=== PATIENT | female | born 1950 | race Caucasian/White ===

== ENCOUNTER 2019-06-18 07:33 | Inpatient (IN) ==
--- NOTE | 2019-06-03 07:46 | History & Physical Report ---
Date of Service June 03, 2019 date of surgery: 06-18-19 Assessment & Plan (1) Arthritis of right knee: Risks and benefits of procedure discussed in detail today, patient would like to proceed with a Right total knee replacement at [facility] as scheduled. will obtain medical clearance prior to surgery as well as obtain PATs at [facility]. Will place on ASA 81mg po bid x 1 month post op, f/u 2 weeks post op for routine post-operative care and x-ray, sooner if having any problems. will make arrangements for HHPT at the time of discharge. At this point in time, has failed conservative measures and would like to proceed with surgical intervention. History of Present Illness Chief Complaint: Right knee pain Primary Care Provider: Nadira Rubio DO Yanni is a 68 year old female who complains of Right knee pain, presents for pre-op evaluation prior to a right total knee replacement by dr Otoole at [facility]. she complains of pain, crepitus, decreased range of motion, instability and stiffness in the right knee. she states that the symptoms have been chronic and non-traumatic and that the symptoms occur constantly with intermittent worsening. Currently the patient states that the symptoms are moderate-severe. The pain is described as aching, sharp and throbbing. The symptoms occur continuously. The symptoms are aggravated by ascending stairs, daily activities, first steps while awake walking. Prior NSAIDs include Mobic, Aleve and IBU. she has been treated with multiple previous Visco injections in the past without much relief. she had previous right knee scope in 2008. Allergies Allergy/AdvReac Type Severity Reaction Status Date / Time No Known Drug Allergies Allergy Unknown Verified 05/27/19 13:18 Home Medications Home Medications Medication Instructions Recorded Confirmed Type aripiprazole [Abilify] 5 mg PO QDL 05/27/19 05/27/19 History cholecalciferol (vitamin D3) 5,000 unit PO Q OTHER DAY 05/27/19 05/27/19 History [Vitamin D3] conjugated estrogens [Premarin] 0.625 mg PO QDL 05/27/19 05/27/19 History desvenlafaxine succinate [Pristiq] 100 mg PO QDL 05/27/19 05/27/19 History guanfacine [Intuniv ER] 1 mg PO QPM 05/27/19 05/27/19 History levothyroxine [Synthroid] 150 mcg PO QAM 05/27/19 05/27/19 History multivitamin 1 tab PO QDL 05/27/19 05/27/19 History nortriptyline 25 mg PO HS 05/27/19 05/27/19 History pramipexole 0.125 mg PO TID PRN 05/27/19 05/27/19 History Past Med/Surg History Medical History ADHD Anxiety Anxiety Depression Hx of hepatitis C Hypothyroidism Osteoarthritis Tardive dyskinesia AFFECTS TONGUE Traumatic brain injury D/T FALL 2012; RESIDUAL WITH CONCENTRATION AND MEMORY. ALSO HAS TROUBLE FINDING WORDS. DIFFICULTY WOTH ANDIE MOTOR SKILLS. STATES DOESN' KNOW WHEN TO LET GO OF THINGS Surgical History History of section History of hysterectomy Hx of bilateral cataract extraction Hx of bilateral oophorectomy Hx of section X2 Hx of colonoscopy Hx of hysterectomy Hx of plastic surgery REMOVAL EXCESSIVE STOMACH TISSUE Status post panniculectomy Family History Mother Leukemia Social History Preferred Language: [place] Leonean Communication Ability: Effective Beliefs That Will Affect Care: None Current Living Situation: Spouse Feels Safe at Home: Yes Smoking Status: Never smoker Hx Alcohol Use: Yes Alcohol type: beer Hx Substance Use: No Sunscreen Use: Yes Review of Systems Review of Systems: All systems reviewed & are unremarkable except as noted in HPI & below Constitutional: no fever, no chills and no sweats Respiratory: no cough and no dyspnea Cardiovascular: no chest pain, no dyspnea and no orthopnea Gastrointestinal: no abdominal pain, no nausea and no vomiting Musculoskeletal: as per Subjective / HPI Physical Exam 2 Physical Exam: Ht: 5ft 3in Wt: 99.8kg BP: 120/86 Pulse: 76 Constitutional: WD/WN, vitals as above no acute distress Respiratory: normal respiratory effort, lungs clear to auscultation no respiratory distress, no labored breathing and does not use accessory muscles Cardiovascular: RRR, no murmur, no edema Gastrointestinal (Abdomen): normal bowel sounds, soft, nontender, no hepatosplenomegaly Musculoskeletal: Knee: + knee abnormal to inspection (right knee), + effusion (+1 effusion), + surgical incision (well healed portals), + limited ROM of knee (ROM 0/3/110), + knee ROM with crepitation, + joint line tenderness (medial joint line) and + Nuno's sign positive; no deformity, no skin erythema, no ecchymosis, no valgus laxity, no varus laxity, anterior drawer test negative, Alba's sign negative and pivot shift test negative Results & Data Diagnostic Findings right knee x-ray from July 2018 showing complete loss joint space medial compartment with overall varus alignment, there is also narrowing of the lateral compartment and patellofemoral joint. there is osteophyte formation, subchondral sclerosis noted, no loose bodies, no acute bony pathology. overall impression tricompartmental degenerative changes to the right knee.
--- NOTE | 2019-06-03 12:18 | PAT Medication Instructions ---
Medication Instructions Date of Service June 03, 2019 Home Medications aripiprazole [Abilify] 5 mg PO QDL cholecalciferol (vitamin D3) [Vitamin D3] 5,000 unit PO Q OTHER DAY conjugated estrogens [Premarin] 0.625 mg PO QDL desvenlafaxine succinate [Pristiq] 100 mg PO QDL guanfacine [Intuniv ER] 1 mg PO QPM levothyroxine [Synthroid] 150 mcg PO QAM multivitamin 1 tab PO QDL nortriptyline 25 mg PO HS pramipexole 0.125 mg PO TID PRN STOP taking 24 hours before surgery pramipexole 0.125 mg PO TID PRN DO NOT take the morning of surgery cholecalciferol (vitamin D3) [Vitamin D3] 5,000 unit PO Q OTHER DAY Take morning of surgery With a small sip of water, OTHERWISE NOTHING TO EAT OR DRINK AFTER MIDNIGHT: levothyroxine [Synthroid] 150 mcg PO QAM Take evening before surgery (and lunchtime day before surgery) aripiprazole [Abilify] 5 mg PO QDL conjugated estrogens [Premarin] 0.625 mg PO QDL desvenlafaxine succinate [Pristiq] 100 mg PO QDL guanfacine [Intuniv ER] 1 mg PO QPM multivitamin 1 tab PO QDL nortriptyline 25 mg PO HS Other Notes If you have any questions please call us at [phone] or [phone] or [phone] or [phone]
--- NOTE | 2019-06-03 12:33 | Anesthesiology Consultation ---
Date of Service June 03, 2019 Assessment & Plan (1) Encounter for pre-operative examination: Chart Review Chart Review: Acceptable Risk for Surgery (pending surgeon ordered PCP clearance) and Patient seen in Pre Admission Testing Teaching & Discussion Instructed NPO after midnight before surgery, except medications with 15 cc of water. Medication instructions provided according to the PAT guidelines. History Surgery Operation Date: 06/18/19 09:55 Proposed Procedures p Right Total Knee Arthroplasty - Tone Otoole DO Height/Weight Height: 5 ft 3 in Weight: 104 kg Allergies Allergy/AdvReac Type Severity Reaction Status Date / Time No Known Drug Allergies Allergy Unknown Verified 05/27/19 13:18 Medications Home Medications Medication Instructions Recorded Confirmed Last Taken aripiprazole [Abilify] 5 mg PO QDL 05/27/19 05/27/19 Unknown cholecalciferol (vitamin D3) 5,000 unit PO Q OTHER DAY 05/27/19 05/27/19 Unknown [Vitamin D3] conjugated estrogens [Premarin] 0.625 mg PO QDL 05/27/19 05/27/19 Unknown desvenlafaxine succinate [Pristiq] 100 mg PO QDL 05/27/19 05/27/19 Unknown guanfacine [Intuniv ER] 1 mg PO QPM 05/27/19 05/27/19 Unknown levothyroxine [Synthroid] 150 mcg PO QAM 05/27/19 05/27/19 Unknown multivitamin 1 tab PO QDL 05/27/19 05/27/19 Unknown nortriptyline 25 mg PO HS 05/27/19 05/27/19 Unknown pramipexole 0.125 mg PO TID PRN 05/27/19 05/27/19 Unknown Past Medical History Medical History ADHD Anxiety Depression Hx of hepatitis C Hypothyroidism Osteoarthritis Tardive dyskinesia AFFECTS TONGUE Traumatic brain injury D/T FALL 2012; RESIDUAL WITH CONCENTRATION AND MEMORY. ALSO HAS TROUBLE FINDING WORDS. DIFFICULTY WITH SOME MOTOR SKILLS. Exercise / Class Metabolic Activity III < 4 Walking/Shop/Light housework (Has 8 stairs at home that she does daily without CP or SOB, feels would get SOB with longer flight of stairs) Past Family History Family History Mother Leukemia Past Surgical History Surgical History Hx of bilateral cataract extraction Hx of bilateral oophorectomy Hx of section X2 Hx of colonoscopy Hx of hysterectomy Status post panniculectomy Past Anesthesia History No Hx of Anesthesia Complications Mother may have had an issue with Versed or fentanyl overdosing during anesthesia. Unsure of details. History of PONV No Hx of PONV and Hx of Motion Sickness Social History Smoking Status: Never smoker Do You Dip or Chew Tobacco: No Hx Alcohol Use: Yes Alcohol type: beer alcohol intake frequency: a few times a week Hx Substance Use: No Review of Systems Pt denies any recent chest pain, shortness of breath, palpitations, cough, fever or URI. Physical Exam Vital Signs BP: 122/82 P: 70bpm SPO2: 97% RA T: 98.1 F R: 16 Constitutional + obese ENMT Mouth: + dental restorations (few crowns, one implant) and + loose teeth (see diagram); no chipped teeth Mallampati Class: III Mouth / Teeth: 1. VERY loose tooth Neck + short neck; neck extension not limited Respiratory normal respiratory effort Auscultation: lungs clear to auscultation bilaterally Cardiovascular Rate/Rhythm: regular rate and regular rhythm Heart Sounds: no murmur Extremities: no edema Testing Laboratory Results 06/03/19 12:42 06/03/19 12:42 PT 10.1 Seconds (9.0-12.0) 06/03/19 12:42 INR 1.0 (0.9-1.1) 06/03/19 12:42 APTT 25.3 Seconds (21.0-31.0) 06/03/19 12:42 Hemoglobin A1c 5.7 % (4.5-5.6) H 06/03/19 12:42 Urine Color Yellow 06/03/19 Unknown Urine Appearance Clear (Clear) 06/03/19 Unknown Urine pH 5.5 (4.5-7.5) 06/03/19 Unknown Ur Specific [place] 1.019 (1.000-1.030) 06/03/19 Unknown Urine Protein Negative (Negative) 06/03/19 Unknown Urine Glucose (UA) Negative (Negative) 06/03/19 Unknown Urine Ketones Negative (Negative) 06/03/19 Unknown Urine Nitrite Negative (Negative) 06/03/19 Unknown Ur Leukocyte Esterase Negative (Negative) 06/03/19 Unknown Blood Type A Positive 06/03/19 12:42 Antibody Screen NEGATIVE 06/03/19 12:42 Electrocardiogram Date: 06/03/19 Findings: + NSR @ (61) Left axis deviation. Low voltage QRS. Compared with EKG of 06/07/2012, no significant change found. Chest X-Ray Date: 06/03/19 IMPRESSION: Suspected minimal right middle lobe atelectasis. Otherwise unremarkable chest.
--- NOTE | 2019-06-03 13:10 | XRay Report ---
XR chest Pre-admission PA/Lat CLINICAL HISTORY: Preoperative chest COMPARISON STUDY: No previous studies for comparison. FINDINGS: The heart is normal in size. There is no failure. There is no lobar consolidation. Slightly prominent right middle lobe markings are likely atelectatic. There are no significant pleural effusi ons.[ IMPRESSION: Suspected minimal right middle lobe atelectasis. Otherwise unremarkable chest. ACT 112: Negative or not required by law. Electronically signed by: Raleigh De León M.D. 06/03/2019 1:08 PM
[2019-06-03 14:01] LABS: Basophils # (auto) 0.02 K/uL (0-0.2); Basophils % (auto) 0.3 %; Eosinophils # (auto) 0.14 K/uL (0-0.5); Eosinophils % (auto) 2.1 %; Hematocrit (blood only) 40.9 % (37-47); Hemoglobin 13.4 g/dL (12.0-16.0); Immature Granulocytes # (auto) 0.01 K/uL (0.00-0.02); Immature Granulocytes % (auto) 0.1 %; Lymphocytes # (auto) 2.24 K/uL (1.2-3.4); Lymphocytes % (auto) 33.6 %; Mean Corpuscular Hgb Conc 32.8 g/dL (32-36); Mean Corpuscular Volume 94.7 fL (80-100); Mean Platelet Volume 10.1 fL (7.4-10.4); Monocytes # (auto) 0.42 K/uL (0.11-0.59); Monocytes % (auto) 6.3 %; Neutrophils # (auto) 3.84 K/uL (1.4-6.5); Neutrophils % (auto) 57.6 %; Platelet Count 211 K/uL (130-400); RDW Coefficient of Variation 13.7 % (11.5-14.5); RDW Standard Deviation 47.4 fL (36.4-46.3); Red Blood Count 4.32 M/uL (4.2-5.4); White Blood Count 6.67 K/uL (4.8-10.8)
[2019-06-03 14:02] LABS: Appearance Urine Clear (Clear); Bilirubin Urine Negative (Negative); Blood Urine Negative (Negative); Color Urine Yellow; Glucose Urine UA Negative (Negative); Ketones Urine Negative (Negative); Leukocyte Esterase Urine Negative (Negative); Nitrite Urine Negative (Negative); Protein Urine Negative (Negative); Specific Gravity Urine 1.019 (1.000-1.030); Urobilinogen Urine Negative (Negative); pH Urine 5.5 (4.5-7.5)
[2019-06-03 14:18] LABS: Partial Thromboplastin Ratio 0.9; Partial Thromboplastin Time 25.3 Seconds (21.0-31.0); Prothrombin Time 10.1 Seconds (9.0-12.0)
[2019-06-03 14:23] LABS: Albumin Level 3.4 gm/dl (3.4-5.0); BUN Creatinine Ratio 19.6 (10-20); Calcium 9.4 mg/dl (8.5-10.1); Creatinine Clr Calc Pharmacy 93.8 ml/min; Est GFR (African American) 105.6; Est GFR (Non-African American) 91.2; Potassium 4.3 mmol/L (3.5-5.1)
--- NOTE | 2019-06-03 15:40 | Electrocardiogram Report ---
Test Reason : Blood Pressure : / mmHG Vent. Rate : 061 BPM Atrial Rate : 061 BPM P-R Int : 156 ms QRS Dur : 084 ms QT Int : 406 ms P-R-T Axes : 063 -34 050 degrees QTc Int : 408 ms Normal sinus rhythm Left axis deviation Low voltage QRS Abnormal ECG When compared with ECG of 07-JUN-2012 09:18, No significant change was found Confirmed by German Mcarthur ([id number]) on 06/03/2019 3:39:54 PM Referred By: Tone Otoole Confirmed By:German Mcarthur
[2019-06-04 05:48] LABS: Estimated Average Glucose 117 mg/dl; Hemoglobin A1C 5.7 % (4.5-5.6)
[~2019-06-18 07:33] MED LIST: ACETAMINOPHEN 500 MG TAB PO SCH; BUPIVACAINE 0.5 % 5 MG/1 ML PF 10ML VIAL ONE; BUPIVACAINE/EPINEPHRINE 0.25% 1:200,000 30 ML VIAL ONE; CEFAZOLIN 2000MG 2,000 MG/15 ML SYR IV SCH; CeleBREX 200 MG CAP PO SCH; FAMOTIDINE 20 MG TAB PO SCH; GABAPENTIN 300 MG CAP PO SCH; LR 500ML BOLUS, THEN 15ML/HR IV SCH; METOCLOPRAMIDE HCL 10 MG TABLET PO SCH; ROPIVACAINE 0.5% HCL/PF 150 MG, BUPIVACAINE 0.5% MPF 30 ML, EPINEPHrine 30MG/30ML (OR U... INSTIL SCH; TRANEXAMIC ACID 1,000 MG **IV Intra-op IV SCH; TRANEXAMIC ACID 1,000 MG **IV Pre-op IV SCH; dexAMETHasone 4 MG TAB PO SCH
--- NOTE | 2019-06-18 08:41 | History & Physical Bridge Note ---
Date of Service June 18, 2019 History & Physical Bridge Note I have examined the patient, reviewed the History & Physical and in the interval since the performance of the History & Physical I have noted the following changes of clinical significance: no changes noted
[2019-06-18] MEDS ORDERED: fentaNYL citrate 100 MCG/2 ML VIAL ONE (08:44)
[2019-06-18] MEDS ORDERED: MIDAZOLAM HCL 1 MG/ML 2ML VIAL ONE (08:44)
[2019-06-18] MEDS ORDERED: TRANEXAMIC ACID / 0.7% NACL 1000MG/100ML BAG IV ONE (08:46)
[2019-06-18] MEDS ORDERED: ORTHO JOINT ANESTHETIC ONE (09:14)
[2019-06-18] MEDS ORDERED: BACITRACIN INJ 50,000 UNIT VIAL ONE (09:15)
[2019-06-18] MEDS ORDERED: ATROPINE SULFATE 0.1 MG/ML 10ML SYR IV PRN (09:22)
[2019-06-18] MEDS ORDERED: ePHEDrine sulfate 50 MG/ML AMP IV PRN (09:22)
[2019-06-18] MEDS ORDERED: ONDANSETRON INJ 2 MG/ML 2 ML VIAL IV PRN ×2 (09:22→13:02)
[2019-06-18] MEDS ORDERED: HYDROmorphone INJ 2 MG/ML SYR/VIAL IV PRN (09:22)
[2019-06-18] MEDS ORDERED: fentaNYL citrate 100 MCG/2 ML VIAL IV PRN (09:22)
[2019-06-18] MEDS ORDERED: LIDOCAINE HCL 2% 2 ML VIAL/AMP(20MG/ML) INFIL ONE (09:57)
[2019-06-18] MEDS ORDERED: PROPOFOL IV EMULSION 10 MG/ML 20 ML VIAL IV ONE ×3 (09:57→10:36)
[2019-06-18] MEDS ORDERED: ONDANSETRON INJ 2 MG/ML 2 ML VIAL ONE (09:58)
[2019-06-18] MEDS ORDERED: PHENYLEPHRINE 100MCG/ML 5ML SYR ONE (10:00)
[2019-06-18] MEDS ORDERED: ePHEDrine sulfate 50 MG/ML SYR ONE (10:18)
--- NOTE | 2019-06-18 10:48 | Operative Report ---
Post Operative Report Pre & Post Diagnosis Operation Date: 06/18/19 09:55 Pre-Op Diagnosis: Right knee osteoarthritis Post-Op Diagnosis: Right knee osteoarthritis I identified the patient and participated in the time-out.: Yes Procedure Operation Date: 06/18/19 09:55 Actual Procedures p Right Total Knee Arthroplasty(Right) utilizing [employer] journey 2 patient matched total knee arthroplasty size 3 femur size 2 tibia size 13 polyethylene size 29 oval patella- Tone Otoole DO Surgeon Tone Otoole DO Machine Operator Hop Worker RADAMES Post Estimated Blood Loss 5 Findings Consistent with Post-Op Diagnosis Patient presents with severe end-stage tricompartmental degenerative joint disease [id number] marginal osteophyte subchondral cystic changes eburnated bone with marginal with a moderate to large effusion no response to conservative management Specimens Bone cartilage Drains Medium bore Hemovac Complications none Disposition Accompanied Patient To Recovery: No Disposition: Recovery Room Indications Patient presents being seen evaluated with complaints of ongoing pain attributable to her knee she been no response to conservative management inclu ding physical therapy anti-inflammatories relative rest activity modification corticosteroid injections Visco supplementation she presents for right total knee arthroplasty Description of Procedure After proper prepping and draping of the Right lower extremity anterior midline incision was made over the region of the extensor extensor mechanism after meticulous hemostasis was obtained and maintained in subcutaneous tissues a medial parapatellar incision was made The patella was subluxed lateralward the medial lateral gutter were cleaned from any hypertrophic synovitis and scar tissue of the distal femoral block was placed and the distal femoral osteotomy cut was made subsequently the chamfers anterior and posterior osteotomy cuts were made utilizing the 4-in-1 block the tibia was subsequently subluxed anteriorward medial and ateral meniscal remnants were excised in their entirety remnants of the anterior and posterior cruciate ligaments were excised in their entirety excellent exposure of the proximal tibia was obtained the tibial osteotomy guide was placed on the proximal tibial osteotomy cut was made once again the knee was irrigated with copious amounts of sterile saline solution the patella was subsequently everted lateralward thickened scar tissue around the patella was removed the patella was subsequently cut utilizing a freehand technique and was drilled prepared for final preparation and placement of patella socially flexion-extension gaps were checked and the equal and symmetric trials were placed to the appropriate femoral and tibial trials with poly-spacer being placed for equal flexion and extension gaps and full range of motion including extension to 0 and flexion to 140 the trial components after having been taken to recovery range of motion was subsequently removed meticulous hemostasis was obtained and maintained subsequently a knee block injection of joint cocktail including ropivacaine 0.5% 150 mg. Bupivacaine 0.5% epinephrine 1-200,030 mL's toradol 30 mg dexamethasone 4 mg ketamine 10 mg clonidine 100 micrograms normal saline solution 30 mg was infiltrated into the soft tissues of the posterior knee medial lateral gutters and periosteal synovium special attention was paid to protect neurovascular structures at all times subsequently trial components having been removed the knee was irrigated with sterile saline solution. debris was removed the proximal tibia was subsequently prepared and was made ready for the placement of the tibial component tibial component was also cemented and tamped into position the femoral component was subsequently placed and cemented in the position the patellar component was subsequently cemented in position because hemostasis once again obtained and maintained wound having been thoroughly irrigated with debridement and debridement lavage was performed as well as a medial parapatellar incision closed with #1 Vicryl in interrupted fashion subcutaneous was closed with #2 Vicryl skin was closed with skin clips. PA-C was necessary for prepping and drapping as well as wound closure of deep fascia Sub cutaneous tissue and skin and was necessary for the case. A sterile compressive dressing was placed patient was taken to recovery in stable condition of report dictated by Xiang I attest to the content of the Intraoperative Record and any orders documented therein. Any exceptions are noted below. I attest to the content of the Intraoperative Record and any orders documented therein. Any exceptions are noted below.
--- NOTE | 2019-06-18 12:11 | XRay Report ---
RIGHT KNEE 2 VIEWS History: Right total knee arthroplasty. Degenerative arthritis. Postop. FINDINGS: The patient is status post a right total knee arthroplasty. The hardware is intact. No frac ture or dislocation. Surgical drains are in place. IMPRESSION: Right total knee arthroplasty. No evidence for hardware complication. ACT 112: Negative or not required by law. Electronically signed by: Juventino Russell M.D. 06/18/2019 12:10 PM
--- NOTE | 2019-06-18 12:38 | Anesthesiology Progress Note ---
Date of Service June 18, 2019 Anesthesia Post Procedure Vital Signs Vital Signs: Temp Pulse Pulse Resp BP Pulse Ox 06/18/19 12:15 36.8 C 74 16 117/65 96 06/18/19 12:05 36.8 C 75 20 108/59 L 98 06/18/19 11:55 77 14 113/75 99 06/18/19 11:45 79 16 105/61 100 06/18/19 11:35 37.2 C 84 16 98/55 L 96 06/18/19 08:20 36.7 C 71 18 138/85 95 Transfer of Care Handoff Completed per policy Notes Mental Status: alert / awake / arousable and participated in evaluation Patient Amnestic to Procedure: Yes Nausea / Vomiting: adequately controlled Pain: adequately controlled Airway Patency, RR, SpO2: stable & adequate BP & HR: stable & adequate Hydration State: stable & adequate Anesthetic Complications: no major complications apparent and Pt Satisfied with anesthetic care
[2019-06-18] MEDS ORDERED: NALOXONE HCL 0.4 MG/1 ML VIAL/CARP IV PRN (13:02)
[2019-06-18] MEDS ORDERED: METOCLOPRAMIDE HCL INJ 5 MG/ML 2 ML VIAL IV PRN (13:02)
[2019-06-18] MEDS ORDERED: MAGNESIUM HYDROXIDE SUSP 30 ML UDC PO PRN (13:02)
[2019-06-18] MEDS ORDERED: HYDROmorphone INJ 1 MG/ML SYRINGE IV PRN (13:02)
[2019-06-18] MEDS ORDERED: bisacodyL 10 MG SUPP PR PRN (13:02)
[2019-06-18] MEDS: SODIUM CHLORIDE 0.9% 1000ML 1,000 ML IV SCH (15:08)
[2019-06-18] MEDS: KETOROLAC TROMETHAMINE 15 MG/ML VIAL IV SCH ×2 (15:09→20:39)
[2019-06-18] MEDS: ACETAMINOPHEN 500 MG TAB PO SCH ×2 (15:10→22:41)
[2019-06-18] MEDS: CEFAZOLIN 2000MG 2,000 MG/15 ML SYR IV SCH (18:58)
[2019-06-18] MEDS: OXYCODONE HCL IR 5 MG TAB (IMMEDIATE RELEASE) PO PRN (20:38)
[2019-06-18] MEDS: NORTRIPTYLINE HCL 25 MG CAP PO SCH (20:40)
[2019-06-18] MEDS: DOCUSATE SODIUM 100 MG CAP PO SCH (20:40)
[2019-06-18] MEDS: ASPIRIN 81 MG ECTAB PO SCH (20:40)
[2019-06-18] MEDS: SENNA 8.6 MG TAB PO SCH (20:41)
[2019-06-18] MEDS: PRAMIPEXOLE DIHYDROCHLO 0.25 MG TAB PO PRN (21:07)
[2019-06-18] MEDS: GUANFACINE HCL 1 MG ERTAB PO SCH (21:07)
[2019-06-19] MEDS: SODIUM CHLORIDE 0.9% 1000ML 1,000 ML IV SCH (00:45)
[2019-06-19] MEDS: CEFAZOLIN 2000MG 2,000 MG/15 ML SYR IV SCH (02:14)
[2019-06-19] MEDS: KETOROLAC TROMETHAMINE 15 MG/ML VIAL IV SCH ×2 (02:14→08:52)
[2019-06-19] MEDS: ACETAMINOPHEN 500 MG TAB PO SCH ×3 (05:40→22:46)
[2019-06-19] MEDS: LEVOTHYROXINE SODIUM 150 MCG TABLET PO SCH (05:40)
[2019-06-19 07:00] LABS: Hematocrit (blood only) 33.8 % (37-47); Hemoglobin 11.1 g/dL (12.0-16.0); Mean Corpuscular Hemoglobin 31.6 pg (25-34); Mean Corpuscular Hgb Conc 32.8 g/dL (32-36); Mean Corpuscular Volume 96.3 fL (80-100); Mean Platelet Volume 9.7 fL (7.4-10.4); Platelet Count 160 K/uL (130-400); RDW Standard Deviation 49.1 fL (36.4-46.3); Red Blood Count 3.51 M/uL (4.2-5.4); White Blood Count 14.11 K/uL (4.8-10.8)
[2019-06-19 07:30] LABS: BUN Creatinine Ratio 20.1 (10-20); Calcium 8.4 mg/dl (8.5-10.1); Creatinine Clr Calc Pharmacy 77.8 ml/min; Est GFR (African American) 86.4; Est GFR (Non-African American) 74.6; Potassium 4.8 mmol/L (3.5-5.1)
--- NOTE | 2019-06-19 08:36 | Anesthesiology Progress Note ---
Date of Service June 19, 2019 Anesthesia Post Procedure Vital Signs Vital Signs: Temp Pulse Pulse Resp BP BP Pulse Ox 06/19/19 07:00 36.8 C 71 16 97/63 L 92 06/19/19 03:28 36.5 C 63 15 95/59 L 91 06/18/19 23:06 36.8 C 76 14 98/64 L 91 06/18/19 20:06 36.8 C 85 17 109/73 93 06/18/19 15:14 84 16 101/64 94 06/18/19 13:25 36.4 C L 74 16 111/70 95 06/18/19 12:51 73 16 103/71 98 06/18/19 12:35 36.5 C 75 15 114/67 98 06/18/19 12:15 36.8 C 74 16 117/65 96 06/18/19 12:05 36.8 C 75 20 108/59 L 98 06/18/19 11:55 77 14 113/75 99 06/18/19 11:45 79 16 105/61 100 06/18/19 11:35 37.2 C 84 16 98/55 L 96 Pain Intensity Right Knee: Pain Intensity: 1 Notes Mental Status: alert / awake / arousable and participated in evaluation Patient Amnestic to Procedure: Yes Nausea / Vomiting: adequately controlled Pain: adequately controlled Airway Patency, RR, SpO2: stable & adequate BP & HR: stable & adequate Hydration State: stable & adequate Neuraxial Anesthesia: was administered and sensory block resolved Anesthetic Complications: no major complications apparent and Pt Satisfied with anesthetic care Notes: Talked with patient, at length, about the loss of her left front tooth. Pt recalls verbalizing to Dr Bhatia that it was extremely loose and that there was a very good possibilty of the tooth falling out. I explained to the patient that she was obstructing from the sedation and that we opened her airway with an oral airway. It was when the airway was removed that her tongue was pushing against her tooth and it was noticed that the toothwas already out. The patient reverbalized this morning that she is fine with loosing the tooth and that she had been trying to get it out and loosening it herself. I told her that if she had any more questions to please feel free to reach out to myself or Dr Bhatia.
[2019-06-19] MEDS: DOCUSATE SODIUM 100 MG CAP PO SCH ×2 (08:48→20:18)
[2019-06-19] MEDS: ASPIRIN 81 MG ECTAB PO SCH ×2 (08:49→20:19)
[2019-06-19] MEDS: MULTIVITAMIN TAB PO SCH (08:49)
[2019-06-19] MEDS: CHOLECALCIFEROL 1,000 UNITS 25 MCG TAB PO SCH (08:50)
[2019-06-19] MEDS ORDERED: ZOLPIDEM TARTRATE 5 MG TAB PO PRN (09:08)
--- NOTE | 2019-06-19 09:09 | Orthopedic Progress Note ---
Date of Service June 19, 2019 Assessment & Plan (1) Osteoarthritis of right knee: Postop day 1 status post right total knee arthroplasty. PT/OT protocols. Weightbearing as tolerated. DVT prophylaxis with aspirin, SCDs, SUMAN hose. Pain management with acetaminophen ,IV hydromorphone, and p.o. oxycodone DC planning-patient is planning for home health services upon discharge. Subjective Postop day 1 Patient is currently sitting in her chair at the bedside. She has no complaints this morning. Pain is controlled. She denies any shortness of breath, chest pain, lightheadedness. Physical Exam Physical Exam: Dressings are clean, dry, and intact. Calves are soft and nontender. Neurovascular is intact. Toes are mobile. She has good dors iflexion and plantarflexion of the right foot and ankle. Hemovac drainage was 175 mL from the previous shift. Results & Data Vital Signs (Past 12 Hours) Vital Signs Temp Pulse Resp BP Pulse Ox 06/19/19 07:00 36.8 C 71 16 97/63 L 92 06/19/19 03:28 36.5 C 63 15 95/59 L 91 06/18/19 23:06 36.8 C 76 14 98/64 L 91 Laboratory Results Laboratory Results WBC 14.11 K/uL (4.8-10.8) H 06/19/19 06:34 RBC 3.51 M/uL (4.2-5.4) L 06/19/19 06:34 Hgb 11.1 g/dL (12.0-16.0) L 06/19/19 06:34 Hct 33.8 % (37-47) L 06/19/19 06:34 MCV 96.3 fL (80-100) 06/19/19 06:34 MCH 31.6 pg (25-34) 06/19/19 06:34 MCHC 32.8 g/dL (32-36) 06/19/19 06:34 RDW Std Deviation 49.1 fL (36.4-46.3) H 06/19/19 06:34 RDW Coeff of Romie 14.0 % (11.5-14.5) 06/19/19 06:34 Plt Count 160 K/uL (130-400) 06/19/19 06:34 MPV 9.7 fL (7.4-10.4) 06/19/19 06:34 Immature Gran % (Auto) 0.1 % 06/03/19 12:42 Neut % (Auto) 57.6 % 06/03/19 12:42 Lymph % (Auto) 33.6 % 06/03/19 12:42 [place] % (Auto) 6.3 % 06/03/19 12:42 Eos % (Auto) 2.1 % 06/03/19 12:42 Baso % (Auto) 0.3 % 06/03/19 12:42 Immature Gran # (Auto) 0.01 K/uL (0.00-0.02) 06/03/19 12:42 Neut # (Auto) 3.84 K/uL (1.4-6.5) 06/03/19 12:42 Lymph # (Auto) 2.24 K/uL (1.2-3.4) 06/03/19 12:42 [place] # (Auto) 0.42 K/uL (0.11-0.59) 06/03/19 12:42 Eos # (Auto) 0.14 K/uL (0-0.5) 06/03/19 12:42 Baso # (Auto) 0.02 K/uL (0-0.2) 06/03/19 12:42 PT 10.1 Seconds (9.0-12.0) 06/03/19 12:42 INR 1.0 (0.9-1.1) 06/03/19 12:42 APTT 25.3 Seconds (21.0-31.0) 06/03/19 12:42 PTT Ratio 0.9 06/03/19 12:42 Sodium 140 mmol/L (136-145) 06/19/19 06:34 Potassium 4.8 mmol/L (3.5-5.1) 06/19/19 06:34 Chloride 111 mmol/L (98-107) H 06/19/19 06:34 Carbon Dioxide 26 mmol/L (21-32) 06/19/19 06:34 Anion Gap 3.0 (3-11) 06/19/19 06:34 BUN 17 mg/dl (7-18) 06/19/19 06:34 Creatinine 0.82 mg/dl (0.6-1.2) 06/19/19 06:34 Est Cr Clr Drug Dosing 77.8 ml/min 06/19/19 06:34 Est GFR ( Amer) 86.4 06/19/19 06:34 Est GFR (Non-Af Amer) 74.6 06/19/19 06:34 BUN/Creatinine Ratio 20.1 (10-20) H 06/19/19 06:34 Glucose 132 mg/dl (70-99) H 06/19/19 06:34 Estimat Average Glucose 117 mg/dl 06/03/19 12:42 Hemoglobin A1c 5.7 % (4.5-5.6) H 06/03/19 12:42 Calcium 8.4 mg/dl (8.5-10.1) L 06/19/19 06:34 Albumin 3.4 gm/dl (3.4-5.0) 06/03/19 12:42 Specimen Hemolysis 06/19/19 06:34 Urine Color Yellow 06/03/19 Unknown Urine Appearance Clear (Clear) 06/03/19 Unknown Urine pH 5.5 (4.5-7.5) 06/03/19 Unknown Ur Specific [place] 1.019 (1.000-1.030) 06/03/19 Unknown Urine Protein Negative (Negative) 06/03/19 Unknown Urine Glucose (UA) Negative (Negative) 06/03/19 Unknown Urine Ketones Negative (Negative) 06/03/19 Unknown Urine Blood Negative (Negative) 06/03/19 Unknown Urine Nitrite Negative (Negative) 06/03/19 Unknown Urine Bilirubin Negative (Negative) 06/03/19 Unknown Urine Urobilinogen Negative (Negative) 06/03/19 Unknown Ur Leukocyte Esterase Negative (Negative) 06/03/19 Unknown Blood Type A Positive 06/03/19 12:42 Antibody Screen NEGATIVE 06/03/19 12:42
[2019-06-19] MEDS: ARIPiprazole 5 MG TAB PO SCH (11:37)
[2019-06-19] MEDS: CeleBREX 200 MG CAP PO SCH ×2 (11:38→20:19)
[2019-06-19] MEDS: ESTROGENS, CONJUGATED 0.625 MG TAB PO SCH (11:38)
[2019-06-19] MEDS: OXYCODONE HCL IR 5 MG TAB (IMMEDIATE RELEASE) PO PRN ×3 (13:26→20:17)
[2019-06-19] MEDS: NORTRIPTYLINE HCL 25 MG CAP PO SCH (20:20)
[2019-06-19] MEDS: GUANFACINE HCL 1 MG ERTAB PO SCH (20:20)
[2019-06-19] MEDS: SENNA 8.6 MG TAB PO SCH (20:20)
[2019-06-19] MEDS: PRAMIPEXOLE DIHYDROCHLO 0.25 MG TAB PO PRN (20:54)
[2019-06-20] MEDS: LEVOTHYROXINE SODIUM 150 MCG TABLET PO SCH (05:40)
[2019-06-20] MEDS: ACETAMINOPHEN 500 MG TAB PO SCH ×3 (05:41→23:21)
[2019-06-20] MEDS: OXYCODONE HCL IR 5 MG TAB (IMMEDIATE RELEASE) PO PRN ×3 (08:00→21:43)
[2019-06-20] MEDS ORDERED: KETOROLAC 30 MG/ML VIAL IV ONE (08:43)
--- NOTE | 2019-06-20 08:56 | Orthopedic Progress Note ---
Date of Service June 20, 2019 Assessment & Plan (1) Osteoarthritis of right knee: Postop day 2 status post right total knee arthroplasty. PT/OT protocols. Weightbearing as tolerated. DVT prophylaxis with aspirin, SCDs, SUMAN gomez. Pain management with acetaminophen ,IV hydromorphone, and p.o. oxycodone - Pt with pain control issues this AM. Add one time dose of Toradol. Will stop back and recheck pain control later today. DC planning-patient is planning for home health services upon discharge. Subjective POD 2 s/p Right TKA. Pt states she slept well. Having some pain this AM. Just took OxyIR at 8am but she says it hasn't "kicked in" yet. Teary eyed this AM. States she was on talking to her daughter this AM about family friends that were having difficulties taking care of their parents who weren't well. Pt states she is not normally emotional but it reminded her of taking care of her parents before their passing. No other concerns or complaints this AM. Denies SOB, CP,LH. She wants to see how her pain control is today before deciding if she can go home. We discussed adding additional pain medication. Physical Exam Physical Exam: Incision is C/D/I. Calves soft,NT. NV intact. toes/ankle mobile. Results & Data Vital Signs (Past 12 Hours) Vital Signs Temp Pulse Resp BP Pulse Ox 06/20/19 06:44 36.6 C 70 14 143/85 H 96 06/19/19 23:56 36.6 C 76 14 127/81 92
[2019-06-20] MEDS: ASPIRIN 81 MG ECTAB PO SCH ×2 (09:30→21:38)
[2019-06-20] MEDS: MULTIVITAMIN TAB PO SCH (09:30)
[2019-06-20] MEDS: DOCUSATE SODIUM 100 MG CAP PO SCH ×2 (09:30→21:37)
[2019-06-20] MEDS: CeleBREX 200 MG CAP PO SCH ×2 (09:30→21:37)
[2019-06-20 10:42] LABS: Calcium 8.7 mg/dl (8.5-10.1); Est GFR (African American) 94.7; Est GFR (Non-African American) 81.7; Potassium 4.1 mmol/L (3.5-5.1)
[2019-06-20] MEDS: ARIPiprazole 5 MG TAB PO SCH (11:45)
[2019-06-20] MEDS: ESTROGENS, CONJUGATED 0.625 MG TAB PO SCH (11:46)
[2019-06-20 12:46] LABS: Hematocrit (blood only) 35.5 % (37-47); Hemoglobin 11.5 g/dL (12.0-16.0)
[2019-06-20] MEDS: DESVENLAFAXINE SUCCINATE PO SCH (13:57)
[2019-06-20] MEDS: GUANFACINE HCL 1 MG ERTAB PO SCH (21:38)
[2019-06-20] MEDS: NORTRIPTYLINE HCL 25 MG CAP PO SCH (21:38)
[2019-06-20] MEDS: SENNA 8.6 MG TAB PO SCH (21:39)
[2019-06-20] MEDS: PRAMIPEXOLE DIHYDROCHLO 0.25 MG TAB PO PRN (21:39)
[2019-06-21] MEDS: LEVOTHYROXINE SODIUM 150 MCG TABLET PO SCH (06:08)
[2019-06-21] MEDS: ACETAMINOPHEN 500 MG TAB PO SCH (06:08)
--- NOTE | 2019-06-21 07:05 | Orthopedic Progress Note ---
Date of Service June 21, 2019 Assessment & Plan (1) Osteoarthritis of right knee: Postop day 3 status post right total knee arthroplasty. PT/OT protocols. Weightbearing as tolerated. DVT prophylaxis with aspirin, SCDs, SUMAN hose. Pain management with acetaminophen ,IV hydromorphone, and p.o. oxycodone - DC planning-patient is planning for home health services upon discharge. stable for d/c after PT today. Subjective POD #3 s/p Right TKA Review of Systems Review of Systems: All systems reviewed & are unremarkable except as noted in HPI & below Constitutional: no fever and no chills Respiratory: no cough and no dyspnea Cardiovascular: no chest pain, no dyspnea and no orthopnea Gastrointestinal: no abdominal pain, no nausea and no vomiting Physical Exam Physical Exam: Vital Signs Temp 36.5 C 06/21/19 06:30 Pulse 77 06/21/19 06:30 Resp 18 06/21/19 06:30 BP 153/71 H 06/21/19 06:30 Pulse Ox 95 06/21/19 06:30 Intake & Output 06/20/19 06/21/19 06/21/19 18:59 06:59 18:59 Intake Total 370 / 920 550 / 920 Balance 370 / 920 550 / 920 Intake: Oral 370 / 920 550 / 920 Other: # Unmeasured Voi ds 1 1 Constitutional: WD/WN, vitals as above no acute distress Musculoskeletal: Right leg: NVDI, calf SNT, negative madina sign. DP palpable, able to wiggle toes/ankle movement without difficulty. PRineo clean dry and intact. expected post-operative bruising noted. Results & Data Vital Signs (Past 12 Hours) Vital Signs Temp Pulse Pulse Resp BP Pulse Ox 06/21/19 06:30 36.5 C 77 18 153/71 H 95 06/20/19 23:24 36.4 C L 75 16 131/78 94 Laboratory Results Laboratory Results WBC 14.11 K/uL (4.8-10.8) H 06/19/19 06:34 RBC 3.51 M/uL (4.2-5.4) L 06/19/19 06:34 Hgb 11.5 g/dL (12.0-16.0) L 06/20/19 10:00 Hct 35.5 % (37-47) L 06/20/19 10:00 MCV 96.3 fL (80-100) 06/19/19 06:34 MCH 31.6 pg (25-34) 06/19/19 06:34 MCHC 32.8 g/dL (32-36) 06/19/19 06:34 RDW Std Deviation 49.1 fL (36.4-46.3) H 06/19/19 06:34 RDW Coeff of Romie 14.0 % (11.5-14.5) 06/19/19 06:34 Plt Count 160 K/uL (130-400) 06/19/19 06:34 MPV 9.7 fL (7.4-10.4) 06/19/19 06:34 Immature Gran % (Auto) 0.1 % 06/03/19 12:42 Neut % (Auto) 57.6 % 06/03/19 12:42 Lymph % (Auto) 33.6 % 06/03/19 12:42 [place] % (Auto) 6.3 % 06/03/19 12:42 Eos % (Auto) 2.1 % 06/03/19 12:42 Baso % (Auto) 0.3 % 06/03/19 12:42 Immature Gran # (Auto) 0.01 K/uL (0.00-0.02) 06/03/19 12:42 Neut # (Auto) 3.84 K/uL (1.4-6.5) 06/03/19 12:42 Lymph # (Auto) 2.24 K/uL (1.2-3.4) 06/03/19 12:42 [place] # (Auto) 0.42 K/uL (0.11-0.59) 06/03/19 12:42 Eos # (Auto) 0.14 K/uL (0-0.5) 06/03/19 12:42 Baso # (Auto) 0.02 K/uL (0-0.2) 06/03/19 12:42 PT 10.1 Seconds (9.0-12.0) 06/03/19 12:42 INR 1.0 (0.9-1.1) 06/03/19 12:42 APTT 25.3 Seconds (21.0-31.0) 06/03/19 12:42 PTT Ratio 0.9 06/03/19 12:42 Sodium 140 mmol/L (136-145) 06/20/19 09:56 Potassium 4.1 mmol/L (3.5-5.1) 06/20/19 09:56 Chloride 109 mmol/L (98-107) H 06/20/19 09:56 Carbon Dioxide 27 mmol/L (21-32) 06/20/19 09:56 Anion Gap 4.0 (3-11) 06/20/19 09:56 BUN 18 mg/dl (7-18) 06/20/19 09:56 Creatinine 0.76 mg/dl (0.6-1.2) 06/20/19 09:56 Est Cr Clr Drug Dosing 84.0 ml/min 06/20/19 09:56 Est GFR ( Amer) 94.7 06/20/19 09:56 Est GFR (Non-Af Amer) 81.7 06/20/19 09:56 BUN/Creatinine Ratio 24.0 (10-20) H 06/20/19 09:56 Glucose 99 mg/dl (70-99) 06/20/19 09:56 Estimat Average Glucose 117 mg/dl 06/03/19 12:42 Hemoglobin A1c 5.7 % (4.5-5.6) H 06/03/19 12:42 Calcium 8.7 mg/dl (8.5-10.1) 06/20/19 09:56 Albumin 3.4 gm/dl (3.4-5.0) 06/03/19 12:42 Specimen Hemolysis 06/19/19 06:34 Urine Color Yellow 06/03/19 Unknown Urine Appearance Clear (Clear) 06/03/19 Unknown Urine pH 5.5 (4.5-7.5) 06/03/19 Unknown Ur Specific [place] 1.019 (1.000-1.030) 06/03/19 Unknown Urine Protein Negative (Negative) 06/03/19 Unknown Urine Glucose (UA) Negative (Negative) 06/03/19 Unknown Urine Ketones Negative (Negative) 06/03/19 Unknown Urine Blood Negative (Negative) 06/03/19 Unknown Urine Nitrite Negative (Negative) 06/03/19 Unknown Urine Bilirubin Negative (Negative) 06/03/19 Unknown Urine Urobilinogen Negative (Negative) 06/03/19 Unknown Ur Leukocyte Esterase Negative (Negative) 06/03/19 Unknown Blood Type A Positive 06/03/19 12:42 Antibody Screen NEGATIVE 06/03/19 12:42
[2019-06-21] MEDS: OXYCODONE HCL IR 5 MG TAB (IMMEDIATE RELEASE) PO PRN ×2 (07:06→12:47)
[2019-06-21] MEDS: DOCUSATE SODIUM 100 MG CAP PO SCH (07:45)
[2019-06-21] MEDS: ASPIRIN 81 MG ECTAB PO SCH (07:45)
[2019-06-21] MEDS: CeleBREX 200 MG CAP PO SCH (07:45)
[2019-06-21] MEDS: CHOLECALCIFEROL 1,000 UNITS 25 MCG TAB PO SCH (07:45)
[2019-06-21] MEDS: MULTIVITAMIN TAB PO SCH (07:46)
--- NOTE | 2019-06-21 08:19 | Discharge Summary ---
Date of Service date of discharge: June 21, 2019 date of admission: 06/18/19 Admission HPI Per Admitting Provider Yanni is a 68 year old female who complains of Right knee pain, presents for pre-op evaluation prior to a right total knee replacement by dr Otoole at [facility]. she complains of pain, crepitus, decreased range of motion, instability and stiffness in the right knee. she states that the symptoms have been chronic and non-traumatic and that the symptoms occur constantly with intermittent worsening. Currently the patient states that the symptoms are moderate-severe. The pain is described as aching, sharp and throbbing. The symptoms occur continuously. The symptoms are aggravated by ascending stairs, daily activities, first steps while awake walking. Prior NSAIDs include Mobic, Aleve and IBU. she has been treated with multiple previous Visco injections in the past without much relief. she had previous right knee scope in 2008. Principal Diagnosis right knee arthritis Discharge Exam Vital Signs Temp 36.5 C 06/21/19 06:30 Pulse 77 06/21/19 06:30 Resp 18 06/21/19 06:30 BP 153/71 H 06/21/19 06:30 Pulse Ox 95 06/21/19 06:30 Intake & Output 06/20/19 06/21/19 06/21/19 18:59 06:59 18:59 Intake Total 370 / 920 550 / 920 Balance 370 / 920 550 / 920 Intake: Oral 370 / 920 550 / 920 Other: # Unmeasured Voids 1 1 Constitutional WD/WN, vitals as above no acute distress Musculoskeletal Right knee: NVDI, calf SNT, negative madina sign. DP palpable, able to wiggle toes/ankle movement without difficulty. clean dry and intact. expected post- operative bruising noted. Discharge Data Allergies Allergy/AdvReac Type Severity Reaction Status Date / Time No Known Drug Allergies Allergy Unknown Verified 06/18/19 08:11 Consultations 06/18/19 13:02 Consult Case Management - Discharge Planning Routine Procedures Performed Operation Date: 06/18/19 09:55 Actual Procedures p Right Total Knee Arthroplasty(Right) - Tone Otoole DO Ordered Studies 06/18/19 05:00 US - OR guided needle placemen Routine Hospital Course (1) Osteoarthritis of right knee: Postop day 3 status post right total knee arthroplasty. PT/OT protocols. Weightbearing as tolerated. DVT prophylaxis with aspirin, SCDs, SUMAN hose. Pain management with acetaminophen ,IV hydromorphone, and p.o. oxycodone - DC planning-patient is planning for home health services upon discharge. stable for d/c after PT today. Total Time Total Time Spent Total Time Spent (In Minutes): 20 Total Time Includes: Examination of the Patient, Discharge Planning and Medication Reconciliation Discharge Plan Discharge Items Patient Disposition: Home - Home Health Services Reason For Visit: RIGHT KNEE OSTEOARTHRITIS Discharge Diagnosis: right total knee replacement Condition on Discharge: Good Activity: Per Instructions section Weightbearing: Full weightbearing and Right weightbearing Non-emergency contact: Surgeon Call non-emergency contact if: your temperature is above 101, your wound has increased redness, your wound has increased drainage and your wound pain has increased Follow-up/Referrals: Nadira Rubio DO [Primary Care Provider] - Diet: Regular Addtl Attending Provider Instructions: ACTIVITY RECOMMENDATIONS: SELF CARE INSTRUCTIONS AFTER TOTAL KNEE REPLACEMENT A. You may need to continue a physical therapy program after discharge from the hospital. There are several options available to you. Your doctor will assist you in selecting the best one for you. 1. An out-patient facility 2 to 3 times a week for therapy or home therapy. 2. Continue working on all exercises taught to you in the hospital. Your goals should be to increase bending of your knee to 90 degrees and beyond and to fully straighten your knee. B. You may progress at your own pace from walking with a walker or crutches to a cane; then to no assistive devices. C. Make walking a part of your daily routine. Be up as much as comfortable with rest periods throughout the day. Rest with leg elevation is very important. Use the ice wrap frequently for the first 3-4 weeks. D. There are no restrictions on activities. You may ride in a car, shop, participate in broke handler and all social activities. E. Wear the long elastic stockings (SUMAN hose) 20 hours a day for 2 weeks after surgery. They can be removed several times a day for laundering and for a bath. F. You may shower, no tub baths until cleared by your doctor. SPECIAL CARE INSTRUCTIONS: VERY IMPORTANT TO READ AND REVIEW A. There are a few signs you need to watch for after you are home. Call [facility] if you notice any of the followin. Increased severe knee pain. Some pain is expected especially when you exercise. 2. Increased swelling in your leg or knee; pain or swelling of the calf muscle in either lower leg. 3. Any fluid drainage from the incision. 4. Shortness of breath or chest pain. B. Please call [facility] at if you have any concerns or questions about your operation or recovery. The doctor or his nurse will return your call promptly. C. You must take antibiotics before dental work, bladder, bowel or other johan [email or web address]. Your doctor will provide you with a permanent care to carry describing this precaution. IMPORTANT: * REMEMBER TO TAKE ASPIRIN, 81 MG, TWICE DAILY FOR 4 WEEKS UNLESS OTHERWISE DIRECTED. THIS IS YOUR BLOOD THINNER. * HIGH RISK PATIENTS MAY BE PRESCRIBED A STRONGER BLOOD THINNER. THIS WILL BE PROVIDED AT DISCHARGE. * CALL IF INCREASED PAIN, REDNESS, DRAINAGE OR FEVER GREATER THAT 101. * WEAR SUMAN HOSE 20 HOURS PER DAY FOR 2 WEEKS. * DERMABOND Prineo- This is a mesh tape dressing that is covered with glue. It should remain in place until the incision is properly healed, usually 10-14 days. This dressing is designed to naturally slough off. You may trim the excess mesh tape as it peels off. Incision may be briefly wet in a shower. Dry immediately by blotting with a clean, dry towel. Do not bath or swim until instructed by your doctor. Do not scratch, rub, or pick at the dressing. Do not apply any topical ointments or lotions until dressing is completely removed and/or instructed by your doctor. There may be a small piece of suture material at one end of your incision. Do not pull or trim this. If it is bothersome or catching on clothing, you may cover it with a band-aid. IF INCISION IS LEAKING THROUGH DRESSING, CALL THE OFFICE . FOLLOW UP VISIT: If appointment is not already scheduled: Please call [facility] to make a follow-up appointment for 2 weeks after your surgery at . Pending Studies at Discharge: No Stand-Alone Forms: My [employer], Smoking Cessation Medications and DC Order Prescriptions: New aspirin [Ecotrin Low Strength] 81 mg Tablet,Delayed Release (Dr/Ec) 81 mg PO BID 30 Days Qty: 60 RF: 0 acetaminophen 500 mg Tablet 1,000 mg PO Q8 14 Days Qty: 84 RF: 0 sennosides [Senokot] 8.6 mg Tablet 17.2 mg PO HS PRN (Reason: constipation) Qty: 30 RF: 0 oxycodone 5 mg Tablet 5 - 10 mg PO Q6H PRN (Reason: pain) Qty: 30 RF: 0 cefadroxil 500 mg capsule 500 mg PO BID 10 Days Qty: 20 RF: 0 Continued multivitamin Tablet 1 tab PO QDL RF: 0 nortriptyline 25 mg Capsule 25 mg PO HS RF: 0 levothyroxine [Synthroid] 150 mcg Tablet 150 mcg PO QAM RF: 0 Premarin 0.625 mg Tablet 0.625 mg PO QDL RF: 0 pramipexole 0.125 mg Tablet 0.125 mg PO TID PRN (Reason: RESTLESS LEG SYSNDROME) RF: 0 aripiprazole [Abilify] 5 mg Tablet 5 mg PO QDL RF: 0 desvenlafaxine succinate [Pristiq] 100 mg Tablet Extended Release 24 Hr 100 mg PO QDL RF: 0 cholecalciferol (vitamin D3) [Vitamin D3] 125 mcg (5,000 unit) Tablet 5,000 unit PO Q OTHER DAY RF: 0 guanfacine [Intuniv ER] 1 mg Tablet Extended Release 24 Hr 1 mg PO QPM RF: 0 Discharge Orders: Discharge Order (Routine); Ordered 06/21/19 Ordered By: Steven Galdamez Admission Data Admit Date/Time: 06/18/19 11:36 Attending Provider: Tone Otoole Admit Provider: Tone Otoole Primary Care Provider: Nadira Rubio
[2019-06-21] MEDS: DESVENLAFAXINE SUCCINATE PO SCH (12:48)
[2019-06-21] MEDS: ESTROGENS, CONJUGATED 0.625 MG TAB PO SCH (12:48)
[2019-06-21] MEDS: ARIPiprazole 5 MG TAB PO SCH (12:48)
== END 2019-06-21 13:10 | disposition home health service (06) | DRG 470 ==
LOC: ASU 07:33 → 3E 11:36